=== PATIENT | female | born 2000 | race Caucasian/White ===

== ENCOUNTER 2021-11-30 09:30 | Day surgery (SDC) | payer OTHER ==
[~2021-11-30] VITALS: Ht 160 cm; Wt 57.6 kg
[2021-11-30] MEDS ORDERED: BUPIVACAINE-MPF/EPI 0.5% 30 ML VIAL INJ ONE (11:34)
[2021-11-30] MEDS ORDERED: MEPERIDINE 25 MG/ML SYR IVP PRN (11:40)
[2021-11-30] MEDS ORDERED: ONDANSETRON 4 MG/2 ML VIAL IVP PRN (11:40)
[2021-11-30] MEDS ORDERED: diphenhydrAMINE 50 MG/ML VIAL IVP PRN (11:40)
[2021-11-30] MEDS ORDERED: LACTATED RINGERS 1,000 ML IV SCH (11:40)
[2021-11-30] MEDS ORDERED: fentaNYL citrate 0.05 MG/ML VIAL ONE (11:41)
[2021-11-30] MEDS ORDERED: PROPOFOL 200 MG/20 ML VIAL IV ONE (11:41)
[2021-11-30] MEDS ORDERED: SUCCINYLCHOLINE CHLORIDE 200 MG/10 ML VIAL IVP ONE (11:42)
[2021-11-30] MEDS ORDERED: SEVOFLURANE 250 ML BTL INH ONE (11:45)
[2021-11-30] MEDS ORDERED: DEXAMETHASONE 4 MG/ML VIAL ONE (11:45)
[2021-11-30] MEDS ORDERED: ROCURONIUM 50 MG/5 ML VIAL IV ONE (12:03)
[2021-11-30] MEDS ORDERED: SUGAMMADEX SODIUM 200 MG/2 ML VIAL IV ONE (12:59)
[2021-11-30] MEDS ORDERED: MEPERIDINE 25 MG/ML SYR ONE (13:00)
[2021-11-30] MEDS ORDERED: ACET-9527 PO (13:12)
[2021-11-30] MEDS ORDERED: ACET-8386 PO (13:13)
[2021-11-30] MEDS: HYDROmorphone 1 MG/ML AMP IVP PRN ×3 (13:25→13:55)
[2021-11-30] MEDS ORDERED: ONDANSETRON 4 MG/2 ML VIAL IV PRN (13:30)
[2021-11-30] MEDS ORDERED: HYDROmorphone PFS 2 MG/ML SYR ONE (13:30)
[2021-11-30] MEDS ORDERED: HYDROmorphone 1 MG/ML AMP IVP PRN (13:30)
[2021-11-30] MEDS ORDERED: HYDROcodone/APAP 5/325 MG 1 TAB TAB PO PRN (13:30)
[2021-11-30] MEDS ORDERED: MORPHINE SULFATE 4 MG/ML SYR IV PRN (13:30)
[2021-11-30] MEDS ORDERED: MORPHINE SULFATE 2 MG/ML SYR IVP PRN (13:30)
== END 2021-11-30 15:08 | disposition home or self-care (01) ==
LOC: MMU 09:30 → MDS 09:30
PROVIDERS: ATTEND Surgery
DX: K80.10 Calculus of gallbladder with chronic cholecystitis without obstruction (principal); Z79.899 Other long term (current) drug therapy; Z20.822 Contact with and (suspected) exposure to COVID-19
CPT/HCPCS: 36415; 47562; 71045; 82374; 86886; 86900; 86901; 87426; J0330; J0690; J1100; J1170; J2175; J2405; J2704; J3010; J3490; J7030; J7060; 88304

== ENCOUNTER 2024-02-16 19:38 | Emergency (ER) | payer OTHER ==
[~2024-02-16] VITALS: Ht 160 cm; Wt 68.9 kg
[~2024-02-16 19:38] MED LIST: ACET-8905 PO; ACET-9527 PO
[2024-02-16 19:56] VITALS: BP 115/79; PULSE 112; RESP 14; TEMP 99.3; O2SAT 99
[2024-02-16 22:05] VITALS: O2SAT 99
[2024-02-16] MEDS: KETOROLAC 30 MG/ML VIAL IM ONE (22:56)
[2024-02-16] MEDS: cephALEXin 500 MG CAP PO ONE (22:58)
[2024-02-16] MEDS: HYDROcodone/APAP 5/325 MG 1 TAB TAB PO ONE (22:58)
[2024-02-16] MEDS ORDERED: ACET-10509 PO (23:12)
[2024-02-16] MEDS ORDERED: SULF-59 PO (23:12)
[2024-02-16] MEDS ORDERED: NAPR-1704 PO (23:12)
[2024-02-16] MEDS ORDERED: CEPH-588 PO (23:12)
[2024-02-16 23:49] VITALS: BP 115/79; PULSE 112; RESP 14; TEMP 99.3; O2SAT 99
== END 2024-02-16 23:49 | disposition home or self-care (01) ==
LOC: MED 19:38
DX: L03.311 Cellulitis of abdominal wall (principal); R50.9 Fever, unspecified; Z90.49 Acquired absence of other specified parts of digestive tract; Z79.1 Long term (current) use of non-steroidal anti-inflammatories (NSAID); Z79.2 Long term (current) use of antibiotics; Z79.899 Other long term (current) drug therapy
CPT/HCPCS: 10060; 96372; 99284; J1885